=== PATIENT | male | born 1945 | race Caucasian/White ===

== ENCOUNTER 2020-10-08 18:37 | Emergency (ER) | payer OTHER, SELFPAY ==
[2020-10-08 18:45] VITALS: BP 167/60; PULSE 86; RESP 18; TEMP 37.1; O2SAT 97; BMI 26.9
[2020-10-08 18:53] VITALS: PULSE 79; O2SAT 98
[2020-10-08] MEDS: oxymetazoline 0.05% Nasal Spray 15 mL 2 SPRAY NOSTRIL-B (19:01)
--- NOTE | 2020-10-08 19:10 | W.ED.EPISTAX ---
HPI - Epistaxis General: Chief complaint: Epistaxis Stated complaint: NOSEBLEED Time Seen by Provider: 10/08/20 18:55 Source: patient Mode of arrival: ambulatory Limitations: no limitations History of Present Illness: HPI Narrative: Patient comes in for nosebleed to the left naris starting earlier today without much improvement in control. Patient does take aspirin and Plavix routinely. Patient appears well. Review of Systems General: Reports: 10 or more systems reviewed and unremarkable except in HPI and below ENMT: Reports: epistaxis Physical Exam Const: COMMON NORMALS: no acute distress and patient oriented x3 GENERAL APPEARANCE: cooperative HENMT: COMMON NORMALS: normocephalic, TM's normal bilaterally and Normal external nose present HEAD & SCALP: normal to inspection and normocephalic NOSE: Normal external nose present and Epistaxis present on the left anterior source TYMPANIC MEMBRANE: TM's normal bilaterally MOUTH: Normal oral and palatal mucosa present THROAT: posterior oropharynx normal Eye: GENERAL EYE: appearance normal, both eyes and all related structures Neck/C-Spine: COMMON NORMALS: full ROM Lymph: LYMPHATIC: no lymphadenopathy noted Chest: COMMONS NORMALS: normal inspection of the chest Resp: COMMON NORMALS: normal respiratory effort EFFORT & INSPECTION: Yes able to speak in complete sentences Cardio: COMMON NORMALS: regular rate and regular rhythm RATE: regular rate RHYTHM: regular rhythm GI: COMMON NORMALS: non-tender : COMMON NORMALS: Yes no CVA tenderness BLADDER/KIDNEY EXAM: Yes no CVA tenderness Back/Pelvis: COMMON NORMALS: no CVA tenderness and thoracic and lumbar spine normal to inspection Extremity: COMMON NORMALS: normal to inspection Neuro: COMMON NORMALS: patient oriented x3 and moves all extremities Psych: COMMON NORMALS: mental status grossly normal and cooperative Skin: COMMON NORMALS: no rashes or lesions noted GENERAL SKIN EXAM: no rashes or lesions noted Course ED course: 1904, removal of anterior clot with ring forceps, Afrin spray administered and nose clamp placed.wjw 1919, anterior bleeding continues, no significant bleeding is noted in the posterior pharynx or clot. Clamp removed cotton packing placed with lidocaine and epinephrine saturation.wjw 1999, patient continues to have bleeding in posterior pharynx and is dabbing the front of his nose where the packing is placed. Remove cotton packing from nose and inserted a anterior Rhino Rocket and added 6 mL of air until patient cannot tolerate further pressure. We will reassess in about 15 to 20 minutes. Patient was ordered a hydrocodone for pain. wjw 2029, bleeding has decreased extensively, I do note some blood in the posterior pharynx still. Added total of 8 mL of air now to the balloon we will reevaluate in 20 to 30 minutes. Vital Signs: Vital signs: Vital Signs Temperature 98.7 F 10/08/20 18:45 Pulse Rate 79 10/08/20 21:14 Respiratory Rate 18 10/08/20 18:45 Blood Pressure 180/90 10/08/20 21:14 Pulse Oximetry 97 10/08/20 21:14 MDM - Epistaxis MDM Narrative: Medical decision making narrative: 75-year-old male patient comes in today for complaints of nosebleed in the left nostril. On exam patient has some blood in the anterior left nostril with minimal to no blood in the posterior pharynx. Differential diagnosis includes epistaxis idiopathic, anemia, rhinitis, thrombocytopenia. CBC was unremarkable. Patient bleeding was gotten under control with the use of a Rhino Rocket nasal balloon with 8 mL of air. Patient was treated for pain with hydrocodone and cephalexin for antibiotic. Patient was recommended to return in 3 days to have Rhino Rocket removed if he is unable to get into speech therapist early intervention on Sunday. Patient should continue on antibiotic for next 10 days. Patient was also prescribed hydrocodone for discomfort. Patient reported understanding of care plan and need for follow-up or return. Lab Data: Labs: Lab Results 10/08/20 Range/Units 19:11 WBC 9.3 (4.0-10.0) 10^3/ uL RBC 4.12 (4.1-5.3) 10^6/u L Hgb 11.9 (11.7-16.6) g/dL Hct 35.2 L (42.0-52.0) % MCV 85.4 (80-94) fL MCH 28.9 (28.0-34.0) pg MCHC 33.8 (30.0-36.0) g/dL RDW 13.2 (12.1-15.1) % Plt Count 237 (130-400) 10^3/c mm MPV 11.0 H (7.4-10.4) fL Neut % (Auto) 67.9 % Lymph % (Auto) 20.4 % [place] % (Auto) 8.2 % Eos % (Auto) 2.4 % Baso % (Auto) 0.8 % Neut # (Auto) 6.34 (1.8-7.7) 10^3/u L Lymph # (Auto) 1.9 (0.8-4.8) 10^3/u L [place] # (Auto) 0.8 (0.2-0.9) 10^3/u L Eos # (Auto) 0.2 (0.0-0.8) 10^3/u L Baso # (Auto) 0.1 (0.0-0.1) 10^3/u L Nucleated RBC % (a uto) 0 % Nucleated RBCs # 0.0 /100WBC Discharge Plan Discharge Patient Disposition: Home Clinical Impression: Epistaxis Condition: Stable Prescriptions: New hydrocodone-acetaminophen 5-325 mg tablet 1 tab PO Q6H PRN (Reason: pain) Qty: 10 RF: 0 cephalexin 500 mg tablet 500 mg PO BID 10 Days Qty: 20 RF: 0 No Action atorvastatin 40 mg tablet 40 mg PO DAILY@0530 RF: 0 hydrochlorothiazide 50 mg tablet 25 mg PO DAILY@0530 RF: 0 clopidogrel 75 mg tablet 75 mg PO DAILY@0530 RF: 0 omeprazole 40 mg capsule,delayed release(DR/EC) 40 mg PO DAILY@0530 RF: 0 quinapril 40 mg tablet 40 mg PO DAILY@0530 RF: 0 carvedilol 3.125 mg tablet 3.125 mg PO BID@0530,1800 RF: 0 tamsulosin 0.4 mg capsule 0.4 mg PO BEDTIME@1800 RF: 0 levothyroxine 50 mcg tablet See Rx Instructions .ROUTE .COMPLEX RF: 0 paroxetine HCl 40 mg tablet 40 mg PO DAILY@0530 RF: 0 metformin 500 mg tablet extended release 24 hr 1,000 mg PO DAILY@1800 RF: 0 Aspir-81 81 mg Tablet,Delayed Release (Dr/Ec) 81 mg PO DAILY@0530 RF: 0 Discharge Orders: Discharge ED (Routine); Ordered 10/08/20 Ordered By: Vitor Loja Referrals: Rafi Arora MD [Primary Care Provider] - Discharge Diet: Usual diet Discharge Activity: Increase activity as tolerated Patient Instructions: Epistaxis (ED), Opioid Safety Activity Restrictions/Additional Instructions: Take antibiotic as directed. Use pain medication as needed for discomfort. Hold aspirin for the next 5 days. Drink plenty of water. Follow-up with primary care or return to the ER in 3 days for removal of balloon. Case management will contact you regarding follow-up appointment with speech therapist early intervention. Return to the emergency department for new concerns or worsening symptoms. Coding Level of Care Code ED Brush Cutter for Yari Hayes Exam Comprehensive
[2020-10-08 19:29] LABS: Basophils # 0.1 10^3/uL (0.0-0.1); Basophils % 0.8 %; Eosinophils # 0.2 10^3/uL (0.0-0.8); Eosinophils % 2.4 %; Hematocrit 35.2 % (42.0-52.0); Hemoglobin 11.9 g/dL (11.7-16.6); Lymphocytes # 1.9 10^3/uL (0.8-4.8); Lymphocytes % 20.4 %; Mean Corpuscular HGB Conc 33.8 g/dL (30.0-36.0); Mean Corpuscular Hemoglobin 28.9 pg (28.0-34.0); Mean Corpuscular Volume 85.4 fL (80-94); Monocytes # 0.8 10^3/uL (0.2-0.9); Monocytes % 8.2 %; Neutrophils # 6.34 10^3/uL (1.8-7.7); Neutrophils % 67.9 %; Nucleated Red Blood Cells % 0 %; Platelet Count 237 10^3/cmm (130-400); Red Blood Count 4.12 10^6/uL (4.1-5.3); Red Cell Distribution Width 13.2 % (12.1-15.1); White Blood Count 9.3 10^3/uL (4.0-10.0)
[2020-10-08] MEDS: HYDROcodone-acetaminophen 7.5-325 mg Tablet 1 TAB PO (20:12)
[2020-10-08] MEDS: cephALEXin 500 mg Capsule PO (20:13)
[2020-10-08 21:14] VITALS: BP 180/90; PULSE 79; O2SAT 97
[2020-10-08] MEDS: HYDROcodone-acetaminophen 5-325 mg Tablet 1 TAB PO (21:45)
[2020-10-08 21:53] VITALS: BP 178/88; PULSE 85; O2SAT 95
--- NOTE | 2020-10-11 13:56 | DCPLANNER ---
district manager in training had message to schedule a follow up appointment for patient with ENT. district manager in training emailed patients information to [facility] at [facility] General Surgery. Patients information will be printed and reviewed. Clinic will call patient with appointment information.
--- NOTE | 2020-10-12 08:04 | DCPLANNER ---
manager lean received email that when patient was contacted by clinic to schedule a follow up appointment, that patient had an appointment scheduled with Dr. Badillo.
== END 2020-10-08 21:57 | disposition home or self-care (01) ==
PROVIDERS: Emergency Provider Nurse Practitioner Family; PCP Family Medicine
DX: R04.0 Epistaxis (principal); Z79.84 Long term (current) use of oral hypoglycemic drugs; Z79.02 Long term (current) use of antithrombotics/antiplatelets; Z79.82 Long term (current) use of aspirin
CPT/HCPCS: 85025; 99283

== ENCOUNTER → 2021-12-05 11:02 | Outpatient (BNVA) | payer MEDICARE, SELFPAY | PROVIDERS: PCP Family Medicine; Visit Provider Family Medicine | DX: E03.9 Hypothyroidism, unspecified (principal); E78.5 Hyperlipidemia, unspecified; I10 Essential (primary) hypertension; E11.9 Type 2 diabetes mellitus without complications | CPT/HCPCS: 80053; 80061; 83036; 84443 ==

== ENCOUNTER → 2022-01-10 09:44 | Outpatient (BNVA) | payer MEDICARE, SELFPAY | PROVIDERS: PCP Family Medicine; Referring Provider Family Medicine; Visit Provider Surgery | DX: Z12.11 Encounter for screening for malignant neoplasm of colon (principal) | CPT/HCPCS: 99202 ==

== ENCOUNTER → 2022-01-21 15:46 | Outpatient (BNVA) | payer MEDICARE, SELFPAY | PROVIDERS: PCP Family Medicine; Visit Provider Family Medicine Adult Medicine | DX: R39.9 Unspecified symptoms and signs involving the genitourinary system (principal); I10 Essential (primary) hypertension | CPT/HCPCS: 81000 ==

== ENCOUNTER 2022-03-22 05:53 | Day surgery (SDC) | payer MEDICARE, SELFPAY ==
[2022-03-20 11:07] VITALS: BMI 28.8
[2022-03-22 06:32] VITALS: BP 170/79; PULSE 73; RESP 18; TEMP 36.1; O2SAT 99
[2022-03-22] MEDS: sodium chloride 0.9% 1,000 ML 30 ML IV (07:01)
--- NOTE | 2022-03-22 07:44 | P.HP_ITS ---
Providers/Chief Complaint Primary Care Provider: Cesar Desir MD Chief Complaint: Need for colon cancer screening History of Present Illness Omer Quick is a 76 year old male who is in need of routine colon cancer screening Review of Systems General: Reports: 10 or more systems reviewed and unremarkable except in HPI and below Medications/Allergies Home Medications Medication Instructions Recorded Confirmed Last Taken Type aspirin 81 mg tablet,delayed 81 mg PO DAILY@0530 10/08/20 03/22/22 03/20/22 History release atorvastatin 40 mg tablet 40 mg PO DAILY@0530 10/08/20 03/22/22 03/21/22 History carvedilol 3.125 mg tablet 3.125 mg PO BID@0530,1800 10/08/20 03/22/22 03/21/22 History hydrochlorothiazide 50 mg tablet 25 mg PO DAILY@0530 10/08/20 03/22/22 03/21/22 History hydrocodone 5 mg-acetaminophen 325 1 tab PO Q6H PRN pain #10 tabs 10/08/20 03/22/22 03/21/22 Rx mg tablet levothyroxine 50 mcg tablet See Rx Instructions .Route .COMPLEX 10/08/20 03/22/22 03/21/22 History metformin 500 mg tablet,extended 1,000 mg PO DAILY@1800 10/08/20 03/22/22 History release 24 hr omeprazole 40 mg capsule,delayed 40 mg PO DAILY@0530 10/08/20 03/22/22 03/21/22 History release paroxetine HCl 40 mg tablet 40 mg PO DAILY@0530 10/08/20 03/22/22 03/21/22 History quinapril 40 mg tablet 40 mg PO DAILY@0530 10/08/20 03/22/22 03/21/22 History tamsulosin 0.4 mg capsule 0.4 mg PO BEDTIME@1800 10/08/20 03/22/22 03/21/22 History clopidogrel 75 mg tablet 75 mg PO DAILY@0530 #90 tabs 02/22/22 03/22/22 03/15/22 Rx Allergies Allergy/AdvReac Type Severity Reaction Status Date / Time niacin Allergy Severe ALGY-Hives Verified 03/22/22 06:28 PFSH Acute PFSH: Medical History (Updated 01/21/22 @ 15:48 by Sunny Barros MD) Diabetes History of trigger finger Hypertension Surgical History (Updated 01/10/22 @ 10:16 by Gamaliel Cho DO) History of back surgery History of bilateral knee arthroplasty History of colonoscopy History of heart artery stent Social History Smoking and tobacco status: former smoker Vitals/I&O/Wt Last Vital Signs Temp 97.0 F L 03/22/22 06:32 Pulse 73 03/22/22 06:32 Resp 18 03/22/22 06:32 BP 170/79 03/22/22 06:32 Pulse Ox 99 03/22/22 06:32 O2 Del Method 03/22/22 06:32 Weight last 48 hrs Weight 213 lb A&P Assessment and plan (1) Colon cancer screening: Status: Acute Plan Colonoscopy The risks and benefits of the procedure, including bleeding, infection, intestinal perforation requiring surgery, missed lesion, or explained to the patient. He is understanding of the risks and wishes to proceed. Attestations Medical Necessity Statement*: Patient will be discharged Coding Level of Care Code Acute Upholsterer Apprentice for Yari Hayes Diagnoses Colon cancer screening Z12.11
--- NOTE | 2022-03-22 07:46 | ANES.PREANE2 ---
Pre-Anesthetic Assessment Height/Weight: Height 1.83 m Weight 96.615 kg Temp Pulse Resp BP Pulse Ox O2 Del Method 97.0 F L 73 18 170/79 99 03/22/22 06:32 03/22/22 06:32 03/22/22 06:32 03/22/22 06:32 03/22/22 06:32 03/22/22 06:32 Preop Diagnosis: screening Operation Date: 03/22/22 07:45 Proposed Procedures p Colonoscopy 41303,Z12.11(Not Applicable) - Gamaliel Cho DO Familial anesthetic complications: none Was Beta Reddy taken within 24 hours: N/A Was Clonidine taken within 24 hours: N/A Last intake: Intake Last Liquid Date 03/21/22 Last Liquid Time 21:30 Last Solid Date 03/20/22 Last Solid Time 20:00 Last Intake: 00:00 Exam alert and oriented x 3 Airway Submandibular: within normal limits Cervical ROM: within normal limits Mallampati: Class III History/ROS No significant history except as noted Pulmonary None reported CV/HEM Coronary Artery Disease (stent x1) and Hypertension None reported Hepatic None reported GI None reported Metabolic None reported Musc/skel None reported Neuropsych None reported Anesthetic Plan ASA status: 3 Anesthesia: Anesthesia Evaluation and MAC Risk of > 500 ml blood loss (7ml/kg in children): No Medications/Allergies Home Medications Medication Instructions Recorded Confirmed Last Taken Type aspirin 81 mg tablet,delayed 81 mg PO DAILY@0530 10/08/20 03/22/22 03/20/22 History release atorvastatin 40 mg tablet 40 mg PO DAILY@0530 10/08/20 03/22/22 03/21/22 History carvedilol 3.125 mg tablet 3.125 mg PO BID@0530,1800 10/08/20 03/22/22 03/21/22 History hydrochlorothiazide 50 mg tablet 25 mg PO DAILY@0530 10/08/20 03/22/22 03/21/22 History hydrocodone 5 mg-acetaminophen 325 1 tab PO Q6H PRN pain #10 tabs 10/08/20 03/22/22 03/21/22 Rx mg tablet levothyroxine 50 mcg tablet See Rx Instructions .Route .COMPLEX 10/08/20 03/22/22 03/21/22 History metformin 500 mg tablet,extended 1,000 mg PO DAILY@1800 10/08/20 03/22/22 03/22/22 History release 24 hr omeprazole 40 mg capsule,delayed 40 mg PO DAILY@0530 10/08/20 03/22/22 03/21/22 History release paroxetine HCl 40 mg tablet 40 mg PO DAILY@0530 10/08/20 03/22/22 03/21/22 History quinapril 40 mg tablet 40 mg PO DAILY@0530 10/08/20 03/22/22 03/21/22 History tamsulosin 0.4 mg capsule 0.4 mg PO BEDTIME@1800 10/08/20 03/22/22 03/21/22 History clopidogrel 75 mg tablet 75 mg PO DAILY@0530 #90 tabs 02/22/22 03/22/22 03/15/22 Rx Allergies Allergy/AdvReac Type Severity Reaction Status Date / Time niacin Allergy Severe ALGY-Hives Verified 03/22/22 06:28 Current Medications Generic Name Dose Route Start Last Admin Trade Name Freq PRN Reason Stop Dose Admin Sodium Chloride 1,000 mls @ 30 mls/hr 03/22/22 06:15 03/22/22 07:01 Sodium Chloride 0.9% IV 03/23/22 06:14 30 mls/hr .Q24H WHITNEY Administration PFSH Anesthesia Medical History (Updated 01/21/22 @ 15:48 by Sunny Barros MD) Diabetes History of trigger finger Hypertension Surgical History (Updated 01/10/22 @ 10:16 by Gamaliel Cho DO) History of back surgery History of bilateral knee arthroplasty History of colonoscopy History of heart artery stent Social History Smoking and tobacco status: former smoker Data Anesthesia Cardiac Studies: No Data to Display
[2022-03-22 08:11] VITALS: BP 114/65; PULSE 82; RESP 18; TEMP 36.3; O2SAT 94
--- NOTE | 2022-03-22 08:15 | ANE.PACU2 ---
Inpatient post-anesthesia follow up: Airway intact: Yes Vital signs: Temperature 97.4 F Pulse Rate 82 Respiratory Rate 18 Blood Pressure 114/65 Pulse Oximetry 94 Oxygen Delivery Me thod Room Air Oxygen Flow Rate Fraction of Inspir ed Oxygen Hydration adequate: Yes Nausea and vomiting: No Pain level: 1 Mental status: Baseline
[2022-03-22 08:19] VITALS: BP 122/69; PULSE 85; RESP 18; TEMP 36.4; O2SAT 98
== END 2022-03-22 08:33 | disposition home or self-care (01) ==
PROVIDERS: PCP Family Medicine; Visit Provider Surgery
PROC: 0DJD8ZZ Inspection of Lower Intestinal Tract, Via Natural or Artificial Opening Endoscopic (ICD-10-PCS; CPT 45378; principal; 2022-03-22 07:45)
DX: Z12.11 Encounter for screening for malignant neoplasm of colon (principal); E11.9 Type 2 diabetes mellitus without complications; Z79.84 Long term (current) use of oral hypoglycemic drugs; I10 Essential (primary) hypertension; Z87.891 Personal history of nicotine dependence; I25.10 Atherosclerotic heart disease of native coronary artery without angina pectoris; Z95.5 Presence of coronary angioplasty implant and graft; Z79.82 Long term (current) use of aspirin
CPT/HCPCS: 45378; J2704; J7030

== ENCOUNTER → 2022-06-13 10:20 | Outpatient (BNVA) | payer MEDICARE, SELFPAY | PROVIDERS: PCP Family Medicine; Visit Provider Family Medicine | DX: E03.9 Hypothyroidism, unspecified (principal); E11.9 Type 2 diabetes mellitus without complications; I10 Essential (primary) hypertension | CPT/HCPCS: 80053; 80061; 83036; 84443; 85025 ==

== ENCOUNTER → 2022-07-09 14:55 | Outpatient (BNVA) | payer MEDICARE, SELFPAY | PROVIDERS: PCP Family Medicine; Visit Provider Family Medicine | DX: J21.9 Acute bronchiolitis, unspecified (principal); R49.0 Dysphonia | CPT/HCPCS: 87420 ==

== ENCOUNTER → 2022-12-18 10:18 | Outpatient (BNVA) | payer MEDICARE, SELFPAY | PROVIDERS: PCP Family Medicine; Visit Provider Family Medicine | DX: R35.0 Frequency of micturition (principal); E03.9 Hypothyroidism, unspecified; E78.5 Hyperlipidemia, unspecified; E11.9 Type 2 diabetes mellitus without complications; I10 Essential (primary) hypertension | CPT/HCPCS: 80053; 80061; 81000; 83036; 84153; 84443; 85025 ==

== ENCOUNTER 2023-02-08 10:32 | Emergency (ER) | payer MEDICARE, SELFPAY ==
[2023-02-08 10:37] VITALS: BP 141/72; PULSE 80; RESP 18; TEMP 36.8; O2SAT 98; BMI 28.5
--- NOTE | 2023-02-08 10:58 | ED_ITS ---
HPI - Fall General: Chief Complaint: Fall Stated Complaint: fall, rib pain, left elbow lac Time Seen by Provider: 02/08/23 10:48 History of Present Illness: Patient is in today after a fall. He reports that he had been working on a jeep and when he stood up he lost his balance a little bit and started to go backwards he was unable to catch himself and he fell onto his back. He reports that he is having pain in the right posterior ribs. He reports that he also hit his left arm/elbow on the concrete. He denies any loss of consciousness. He denies hitting his head at all. He reports that he is on blood thinner and had a large laceration on his left arm. He states that he feels okay now he just has pain in his right posterior ribs with movement. He does report he is up-to-date on his tetanus vaccination within the past 5 years. Associated symptoms-after fall: Reports difficulty walking (Patient reports hx numerous injuries to his legs making it hard to walk bas); Denies abdominal pain, chest pain, confusion, headache(s) or vertigo Review of Systems Const: Denies: fever(s) or chills Eyes: Denies: change in vision or blurry vision Card: Denies: chest pain or palpitations Resp: Denies: dyspnea, productive cough or non-productive cough GI: Denies: abdominal pain, nausea or vomiting : Denies: difficulty urinating or dysuria Musc: Reports: back pain and extremity pain Skin/Breast: Reports: other (Laceration left arm) Neuro: Reports: difficulty walking (Patient reports hx numerous injuries to his legs making it hard to walk bas); Denies: headache(s), numbness in extremities, lack of coordination, vertigo or confusion PFS ED PFSH: Medical History Coronary artery disease Diabetes History of trigger finger Hyperlipidemia Hypertension Hypothyroid Surgical History History of back surgery History of bilateral knee arthroplasty History of colonoscopy History of heart artery stent Social History Smoking and tobacco status: former smoker Physical Exam Const: COMMON NORMALS: no acute distress, patient oriented x3, healthy appea ring and alert Neck/C-Spine: OTHER: Minimal tenderness to the musculature posterior neck with no vertebral point tenderness appreciated. Patient has full range of motion of the neck Resp: COMMON NORMALS: normal respiratory effort, No use of accessory muscles and clear to auscultation bilaterally AUSCULTATION: clear to auscultation bilaterally Cardio: COMMON NORMALS: regular rate, regular rhythm, S1 normal heart sound present and S2 normal heart sound present RATE: regular rate RHYTHM: regular rhythm HEART SOUNDS: S1 normal heart sound present and S2 normal heart sound present GI: COMMON NORMALS: Normal to inspection, nondistended, normoactive bowel sounds present, Soft to palpation and non-tender PALPATION: Yes Soft to palpation Back/Pelvis: OTHER: Tenderness to palpation right posterior mid back with no obvious bony or soft tissue deformity appreciated. Pain is reproduced with palpation. No thoracic vertebral point tenderness appreciated. No bony step-offs or deformities appreciated Extremity: NARRATIVE EXTREMITY EXAM: Patient has approximate 2.5 cm laceration to his posterior left forearm just distal to the elbow. Bleeding is controlled currently. Full range of motion to the arm is appreciated. Neuro: COMMON NORMALS: patient oriented x3 SENSORIUM/ORIENTATION: Yes alert Procedures Laceration Left forearm: Site: upper extremity Side (If applicable): left Size (cm): 2.5 Description: linear and clean Depth: simple, single layer Local Anesthetic: lidocaine 2% Amount of anesthesia used (mL): 5 Pre-repair: wound explored, irrigated extensively and deep structures i ntact Skin layer closed with: other (Prolene) Size (cm): 4-0 Number of sutures: 4 Technique: simple, interrupted Course Vital Signs: Vital signs: Vital Signs Temperature 98.2 F 02/08/23 10:37 Pulse Rate 80 02/08/23 10:37 Respiratory Rate 18 02/08/23 11:42 Blood Pressure 138/62 02/08/23 11:42 Pulse Oximetry 99 02/08/23 11:42 Oxygen Delivery Me thod Room Air 02/08/23 11:42 MDM - Fall Medical Decision Making X-rays are unremarkable for any acute osseous deformity. There is 1 mention of a small foreign body on the left forearm however upon closer examination the patient has a bluish discoloration on the left forearm which she states is from a previous piece of metal stuck in there. I do not feel or appreciate any other foreign bodies to the left forearm in the area of the wound wound was cleaned and local anesthetic used. Verbal consent was given by patient and spouse for repair of wound with sutures. Suture repair was done as noted in procedures. Patient tolerated well with no immediate complications noted. Bleeding is controlled. Advised patient to follow-up with primary care provider. Advised patient of conservative treatments at home for muscle sprain and contusions. Return to the ER as needed for new or worsening symptoms Lab Data Radiology Impressions Cervical Spine X-Ray 02/08/23 11:59 IMPRESSION: Nonacute findings. Forearm X-Ray 02/08/23 11:59 IMPRESSION: Tiny foreign body. No osseous or joint abnormality. Thoracic Spine X-Ray 02/08/23 11:59 IMPRESSION: Nonacute findings. Ribs X-Ray 02/08/23 12:01 IMPRESSION: No acute findings. Discharge Plan Discharge Patient Disposition: Home Clinical Impression: Laceration, Muscle strain, Contusion of forearm, left Condition: Stable Prescriptions: New cephalexin 500 mg capsule 500 mg PO BID 5 Days Qty: 10 0RF No Action diclofenac sodium 1 % gel 2 g topical BID carvedilol 3.125 mg tablet 3.125 mg PO BID@0530,1800 Qty: 60 11RF fluticasone propionate [Flonase Allergy Relief] 50 mcg/actuation spray,suspen katia 2 spray intranasal DAILY Qty: 16 0RF Rx Instructions: administer into each nostril All Day Allergy (cetirizine) 10 mg capsule 10 mg PO DAILY Qty: 30 0RF amoxicillin-pot clavulanate [Augmentin] 500-125 mg tablet 1 tab PO TID Qty: 30 0RF atorvastatin 40 mg tablet See Rx Instructions .ROUTE .COMPLEX Qty: 90 3RF Dose Instruction: Take 1 tablet by mouth once a day Rx Instructions: Take 1 tablet by mouth once a day clopidogrel 75 mg tablet See Rx Instructions .ROUTE .COMPLEX Qty: 90 3RF Dose Instruction: TAKE ONE TABLET BY MOUTH DAILY AT 5:30 Rx Instructions: TAKE ONE TABLET BY MOUTH DAILY AT 5:30 nitroglycerin 0.4 mg tablet, sublingual 0.4 mg sublingual Q5M PRN (Reason: chest pain) Qty: 30 5RF Rx Instructions: do not exceed 3 doses per episode gabapentin 300 mg capsule See Rx Instructions .ROUTE .COMPLEX Qty: 90 11RF Dose Instruction: TAKE ONE CAPSULE BY MOUTH THREE TIMES DAILY NEEDED Rx Instructions: TAKE ONE CAPSULE BY MOUTH THREE TIMES DAILY NEEDED levothyroxine 50 mcg tablet See Rx Instructions .ROUTE .COMPLEX Qty: 90 3RF Dose Instruction: TAKE ONE TABLET BY MOUTH FIVE DAYS PER WEEK sunday though sunday AND TAKE 1/2 TABLET two DAYS PER WEEK sunday AND sunday Rx Instructions: TAKE ONE TABLET BY MOUTH FIVE DAYS PER WEEK sunday though sunday AND TAKE 1/2 TABLET two DAYS PER WEEK sunday AND sunday paroxetine HCl 40 mg tablet 40 mg PO DAILY@0530 Qty: 90 3RF lisinopril 20 mg tablet 20 mg PO DAILY Qty: 30 11RF hydrochlorothiazide 50 mg tablet 25 mg PO DAILY@0530 omeprazole 40 mg capsule,delayed release(DR/EC) 40 mg PO DAILY@0530 tamsulosin 0.4 mg capsule 0.4 mg PO BEDTIME@1800 metformin 500 mg tablet extended release 24 hr 1,000 mg PO DAILY@1800 aspirin 81 mg Tablet,Delayed Release (Dr/Ec) 81 mg PO DAILY@0530 Discharge Orders: Discharge ED (Routine); Ordered 02/08/23 Ordered By: Arleth Reddy Referrals: Cesar Desir MD [Primary Care Provider] - Discharge Diet: Usual diet Discharge Activity: Resume usual activity Patient Instructions: Care For Your Stitches (ED), Muscle Strain (ED) Activity Restrictions/Additional Instructions: Your x-rays did not show any acute bony fractures. I recommend conservative treatment for your muscle strain which includes warm moist compresses and gentle stretches. Keep your sutures clean and dry and monitor closely for any signs of infection. Take your antibiotic as directed. Return to the ER in 5 to 7 days for removal of sutures. Return sooner as needed for new or worsening symptoms. Coding Level of Care Code ED Power Transformer Assembler for Yari Hayes
[2023-02-08 11:42] VITALS: BP 138/62; RESP 18; O2SAT 99
--- NOTE | 2023-02-08 11:59 | XRR_ITS ---
PROCEDURE INFORMATION: Exam: XR Cervical Spine Exam date and time: 02/08/2023 12:09 PM Age: 77 years old Clinical indication: Injury or trauma; Fall; Sprain or strain, cervical ligaments; Additional info: S/P fall TECHNIQUE: Imaging protocol: Radiologic exam of the cervical spine. Views: 2 or 3 views. Nonacute findings. COMPARISON: No relevant prior studies available. FINDINGS: Bones/joints: No fracture or other acute abnormality. Alignment is normal. There is moderate to marked C3 and C6 disc space narrowing and mild C5 disc space narrowing. Small marginal osteophytes are seen at these levels. Soft tissues: Unremarkable. XR/XR cervical spine 3V* [id number] IMPRESSION: Nonacute findings.
--- NOTE | 2023-02-08 11:59 | XRR_ITS ---
PROCEDURE INFORMATION: Exam: XR Thoracic Spine Exam date and time: 02/08/2023 12:09 PM Age: 77 years old Clinical indication: Injury or trauma; Fall; Blunt trauma (contusions or hematomas); Additional info: Back pain S/P fall TECHNIQUE: Imaging protocol: Radiologic exam of the thoracic spine. Views: 3 views. COMPARISON: CR XR chest 2V* [id number] 10/28/2018 1:30 PM FINDINGS: Bones/joints: No fracture or other acute abnormality. There is a minor broad dextrocurvature. Sagittal alignment is normal. Mid and lower thoracic hypertrophic changes are seen. Soft tissues: Unremarkable. XR/XR thoracic spine 3V* [id number] IMPRESSION: Nonacute findings.
--- NOTE | 2023-02-08 11:59 | XRR_ITS ---
PROCEDURE INFORMATION: Exam: XR Left Forearm Exam date and time: 02/08/2023 12:27 PM Age: 77 years old Clinical indication: Injury or trauma; Fall; Laceration; Arm, lower; Left; Additional info: Laceration S/P fall TECHNIQUE: Imaging protocol: Radiologic exam of the left forearm. Views: 2 views. COMPARISON: No relevant prior studies available. FINDINGS: Bones/joints: Normal. Soft tissues: There is a tiny radiopaque possibly metallic foreign body in the medial soft tissues of the mid forearm. XR/XR forearm LT 2V [id number] IMPRESSION: Tiny foreign body. No osseous or joint abnormality.
--- NOTE | 2023-02-08 12:01 | XRR_ITS ---
PROCEDURE INFORMATION: Exam: XR Right Ribs Exam date and time: 02/08/2023 12:20 PM Age: 77 years old Clinical indication: Injury or trauma; Fall; Rib area; Blunt trauma (contusions or hematomas); Additional info: Fall with rib pain TECHNIQUE: Imaging protocol: Radiologic exam of the right ribs. Views: 2 views. COMPARISON: CR XR chest 2V* [id number] 10/28/2018 1:30 PM FINDINGS: Bones/joints: No rib fracture or other acute abnormality. Prominent hypertrophic changes of are seen in the visualized spine. Soft tissues: Normal. XR/XR ribs RT 2V* [id number] IMPRESSION: No acute findings.
--- NOTE | 2023-02-08 13:43 | PC.NURSE ---
PT WOUND WAS DRESSED WITH TELFA AND COBAN, ENERGY RATER USED 5CC OF LIDOCAINE 2%
== END 2023-02-08 13:44 | disposition home or self-care (01) ==
PROVIDERS: Emergency Provider Nurse Practitioner Family; PCP Family Medicine
DX: S50.12XA Contusion of left forearm, initial encounter (principal); S16.1XXA Strain of muscle, fascia and tendon at neck level, initial encounter; S51.812A Laceration without foreign body of left forearm, initial encounter; Z79.02 Long term (current) use of antithrombotics/antiplatelets; Z79.84 Long term (current) use of oral hypoglycemic drugs; Z79.82 Long term (current) use of aspirin; Z87.891 Personal history of nicotine dependence; I25.10 Atherosclerotic heart disease of native coronary artery without angina pectoris; E11.9 Type 2 diabetes mellitus without complications; E78.5 Hyperlipidemia, unspecified; I10 Essential (primary) hypertension; W01.0XXA Fall on same level from slipping, tripping and stumbling without subsequent striking against object, initial encounter
CPT/HCPCS: 12001; 71100; 72040; 72072; 73090; 99284

== ENCOUNTER → 2023-06-12 11:18 | Outpatient (BNVA) | payer MEDICARE, SELFPAY | PROVIDERS: PCP Family Medicine; Visit Provider Family Medicine | DX: E03.9 Hypothyroidism, unspecified (principal); E11.9 Type 2 diabetes mellitus without complications; E78.5 Hyperlipidemia, unspecified; I10 Essential (primary) hypertension; I25.10 Atherosclerotic heart disease of native coronary artery without angina pectoris | CPT/HCPCS: 80053; 80061; 83036; 84443; 85025 ==

== ENCOUNTER 2023-10-31 12:45 | Outpatient (CLI) | payer MEDICARE, OTHER, SELFPAY ==
--- NOTE | 2023-10-31 12:53 | XR_ITS ---
WS: [id number] Exam: XR chest 2V* [id number] Date/Time of Exam: 10/31/2023 12:57 PM Reason For Exam: cough Comparison 10/28/2018. The lungs are fully expanded and clear. Normal cardiomediastinal silhouette. No pleural effusions. Sp ondylosis of the thoracic spine. IMPRESSION: 1. No acute cardiopulmonary finding. No change.
== END 2023-10-31 12:46 | disposition home or self-care (01) ==
PROVIDERS: PCP Family Medicine; Visit Provider Family Medicine
DX: R05.9 Cough, unspecified (principal)
CPT/HCPCS: 71046

== ENCOUNTER → 2023-12-19 09:26 | Outpatient (BNVA) | payer MEDICARE, OTHER, SELFPAY | PROVIDERS: PCP Family Medicine; Visit Provider Family Medicine | DX: R73.03 Prediabetes (principal); E78.5 Hyperlipidemia, unspecified; I25.10 Atherosclerotic heart disease of native coronary artery without angina pectoris; I10 Essential (primary) hypertension; E11.9 Type 2 diabetes mellitus without complications; E03.9 Hypothyroidism, unspecified | CPT/HCPCS: 80053; 80061; 83036 ==

== ENCOUNTER → 2023-12-25 13:36 | Outpatient (BNVA) | payer MEDICARE, OTHER, SELFPAY | PROVIDERS: PCP Family Medicine; Visit Provider Family Medicine | DX: R35.1 Nocturia (principal) | CPT/HCPCS: 84153 ==

== ENCOUNTER → 2024-06-10 09:38 | Outpatient (BNVA) | payer MEDICARE, OTHER, SELFPAY | PROVIDERS: PCP Family Medicine; Visit Provider Family Medicine | DX: I10 Essential (primary) hypertension (principal); E78.5 Hyperlipidemia, unspecified; E11.9 Type 2 diabetes mellitus without complications; E03.9 Hypothyroidism, unspecified | CPT/HCPCS: 80053; 80061; 83036; 84443; 85025 ==

== ENCOUNTER → 2025-01-16 10:26 | Outpatient (BNVA) | payer MEDICARE, OTHER, SELFPAY | PROVIDERS: PCP Family Medicine; Visit Provider Family Medicine | DX: E78.5 Hyperlipidemia, unspecified (principal); I25.10 Atherosclerotic heart disease of native coronary artery without angina pectoris; E11.9 Type 2 diabetes mellitus without complications; E03.9 Hypothyroidism, unspecified | CPT/HCPCS: 80053; 80061; 83036 ==